=== PATIENT | male | born 1945 | race Two or more races ===

== ENCOUNTER 2022-07-18 14:28 | Emergency (ER) | payer MEDICARE, MEDICAID ==
[~2022-07-18] VITALS: Ht 172.7 cm; Wt 68.2 kg
[2022-07-18 15:04] LABS: Hemoglobin 13.4 g/dL (13.5-17.5); Red Blood Cells 4.48 10^6/uL (4.5-5.90); White Blood Cell 7.3 10^3/uL (4.4-10.8)
[2022-07-18 15:13] LABS: Basophils # (auto) 0.1 10 ^3/uL (0-0.2); Basophils % (auto) 1.2 % (0.0-2.0); Eosinophils # (auto) 0.1 10 ^3/uL (0-0.8); Eosinophils % (auto) 1.7 % (0.0-7.0); Hematocrit 37.9 % (41.0-53.0); Lymphocytes # (auto) 1.4 10 ^3/uL (0.4-5.4); Lymphocytes % (auto) 18.7 % (10.0-50.0); Mean Corpuscular Hemoglobin 29.8 pg (28.0-32.0); Mean Corpuscular Hgb Conc. 35.3 g/dL (32.0-36.0); Mean Corpuscular Volume 84.5 fL (80.0-100.0); Monocytes # (auto) 0.6 10 ^3/uL (0-1.3); Monocytes % (auto) 7.9 % (0.0-12.0); Neutrophils # (auto) 5.2 10 ^3/uL (1.6-8.6); Neutrophils % (auto) 70.5 % (37.0-80.0); Nucleated Red Blood Cells % 0.2 %; Red Cell Distribution Width 15.6 % (11.8-14.3)
[2022-07-18 15:47] LABS: Albumin 3.3 g/dL (3.4-5.0); Calcium 8.8 mg/dL (8.5-10.1); Potassium 4.1 mmol/L (3.5-5.1)
[2022-07-18 15:53] LABS: BUN/Creatinine Ratio 12.5 (10.0-20.0); Bilirubin, Total 0.6 mg/dL (0.2-1.0); Total Protein 6.6 g/dL (6.4-8.2)
[2022-07-18] MEDS ORDERED: CYCL-611 PO (16:42)
[2022-07-18 18:46] VITALS: BP 153/78
== END 2022-07-18 20:30 | disposition home or self-care (01) ==
LOC: EDBD 14:28 → ER 14:28
DX: R07.89 Other chest pain (principal); M54.2 Cervicalgia; E11.9 Type 2 diabetes mellitus without complications; E78.5 Hyperlipidemia, unspecified; W06.XXXA Fall from bed, initial encounter; Y93.89 Activity, other specified; Y92.89 Other specified places as the place of occurrence of the external cause; Y99.8 Other external cause status
CPT/HCPCS: 36415; 70450; 71045; 72125; 80053; 83880; 84484; 85025; 93005